=== PATIENT | female | born 1940 | race Caucasian/White ===

== ENCOUNTER → 2023-05-24 | Outpatient (CLI) | payer MEDICARE ==
[2023-05-24 11:41] LABS: HEMATOCRIT 38.2 % (37.0-47.0); MEAN CELL VOLUME 114.7 fl (81.0-99.0); MEAN CORPUSCULAR HGB 36.9 pg (27.0-31.0); MEAN CORPUSCULAR HGB CONC 32.2 g/dl (33.0-37.0); MEAN PLATELET VOLUME 10.5 fl (9.6-12.3); PLATELET COUNT AUTOMATED 453 10*3/uL (130-400); RED BLOOD COUNT 3.33 10*6/uL (4.10-5.10); RED CELL DISTRI WIDTH 15.3 % (0-14.5); WHITE BLOOD COUNT 6.6 10*3/uL (4.8-10.8)
[2023-05-24 11:43] LABS: MANUAL DIFF REFLEX YES
[2023-05-24 12:02] LABS: BASOPHILS 1 % (0-1); BURR CELLS FEW; PLATELET SUFFICIENCY HIGH (NORMAL); POLYCHROMASIA SLIGHT; ROULEAUX SLIGHT; TOTAL CELLS COUNTED 100 #CELLS; TOXIC GRANULATION SLIGHT
== END | disposition home or self-care (01) ==
LOC: LAB 10:56
PROVIDERS: ATTEND Internal Medicine Hematology & Oncology
DX: D47.3 Essential (hemorrhagic) thrombocythemia (principal)